=== PATIENT | male | born 1955 | race Caucasian/White ===

== ENCOUNTER → 2021-01-23 | Outpatient (CLI) | payer BC ==
--- NOTE | 2021-01-23 11:53 | Diagnostic Imaging Report ---
INDICATION: Thumb pain COMPARISON: None available TECHNIQUE: 3 radiographs of the right thumb dated 01/23/2021 FINDINGS: No acute fracture or dislocation. No destructive osseous process. Moderate degenerative changes are present at the 1st CMC joint with joint space narrowing and mild osteophyte formation. Mild degenerative changes involving the 1st interphalangeal joint with mild joint space narrowing and osteophyte formation. Ovoid 4 mm calcification is noted dorsal to the 1st digit proximal phalanx distally. No suspicious metallic foreign body. IMPRESSION: No acute osseous abnormality with mild scattered degenerative changes, greatest involving the 1st CMC joint. Calcification dorsal to the 1st digit proximal phalanx is favored to simply relate to a dystrophic soft tissue calcification. Tendinous calcifications an additional consideration. Dictated by: Dictated on workstation # [id number]
== END ==
LOC: RAD FS 09:13
PROVIDERS: ATTEND Nurse Practitioner
DX: M19.041 Primary osteoarthritis, right hand (principal); M20.091 Other deformity of right finger(s)
CPT/HCPCS: 73140